=== PATIENT | female | born 1965 | race Caucasian/White ===

== ENCOUNTER 2020-03-12 11:16 | Outpatient (CLI) | payer BC, SELFPAY ==
--- NOTE | ~2020-03-12 | MR_ITS ---
EXAMINATION: MR brain/brain stem wo con DATE: 03/12/2020 15:00 INDICATION: Headache. Dizziness. Right-sided visual disturbance. TECHNIQUE: Magnetic resonance imaging (MRI) of the brain and brainstem was performed without intraven ous contrast. Sequences included sagittal and axial T1-weighted FSE, axial diffusion-weighted FS EPI, axial T2*-weighted GRE, axial T2-weighted FLAIR Propeller, and axial T2-weighted Propeller. Apparent diffusion coefficient (ADC) maps were created. COMPARISON: Head CT 02/25/2006 FINDINGS: There is no intracranial hemorrhage, acute infarction, or abnormal intracranial mass lesion . The ventricles are normal in size. The orbits are normal. The paranasal sinuses are clear. The mast oid air cells are normal. IMPRESSION: 1. Normal brain. Reviewed, dictated and finalized at location A. IMPRESSION: 1. Normal brain.
--- NOTE | ~2020-03-12 | US_ITS ---
EXAMINATION: US art doppler w press LE BI DATE: 03/12/2020 13:09 INDICATION: Multiple discoloration of the left lower limb following hip replacement. Peripheral vascu lar disease risk factors of hypercholesterolemia and smoking. TECHNIQUE: Segmental pressures and plethysmographic and Doppler waveforms of the brachial and lower e xtremity arteries were obtained. COMPARISON: None. FINDINGS: Right and left brachial artery pressures of 133 mm Hg and 139 mm Hg, respectively, are concordant (no rmal difference <= 30 mmHg). The right and left high-thigh pressure indices are 1.12 and 1.14, respec tively (normal > 1.2). The right ankle-brachial index (MATTEO) is 1.14 (normal >= 0.9-1). The right great toe-brachial index (T BI) is 0.93 (normal >= 0.6-0.8). The right lower extremity segmental pressure gradients are normal (n ormal gradients <= 20-30 mmHg between adjacent levels on the same leg or the same levels on the two l egs). Arterial waveforms are triphasic at the right common femoral, superficial femoral and popliteal arteries and biphasic in the right posterior tibial and dorsalis pedis arteries with brisk systolic upstrokes throughout. The left MATTEO is 1.11. The left TBI is 1.09. The left lower extremity segmental pressure gradients are normal. Arterial waveforms are biphasic at the left posterior tibial artery and triphasic at the rem aining arteries with brisk systolic upstrokes throughout. IMPRESSION: 1. Normal MATTEO's and TBI's bilaterally. No significant arterial occlusive disease. Reviewed, dictated and finalized at location A. IMPRESSION: 1. Normal MATTEO's and TBI's bilaterally. No significant arterial occlusive diseas e.
--- NOTE | ~2020-03-12 | XR_ITS ---
XR_CERV2-3V_CR DATE: 03/12/2020 12:22 INDICATION: Neck pain TECHNIQUE: AP, lateral and open mouth views COMPARISON: None FINDINGS: C1 and C2 are normally aligned and the odontoid process is intact. No fracture or dislocat ion or locked facet. No prevertebral soft tissue swelling. The cervical interspaces are preserved. IMPRESSION: No significant abnormality Reviewed, dictated and finalized at Location A. Reviewed, dictated and finalized at location A. IMPRESSION: No significant abnormality
--- NOTE | ~2020-03-12 | US_ITS ---
US venous doppler [facility] DATE: 03/12/2020 13:09 INDICATION: Left leg pain, mottling TECHNIQUE: Real-time and color flow imaging and Doppler analysis COMPARISON: None FINDINGS: The greater saphenous veins are patent. There is spontaneous and phasic flow and normal aug mentation and color flow signal and normal compression of the deep veins of both lower extremities. IMPRESSION: No evidence of deep venous thrombosis of the legs Reviewed, dictated and finalized at Location A. Reviewed, dictated and finalized at location A.
[2020-03-12 11:52] LABS: Hematocrit 42.5 % (37.0-47.0); Hemoglobin 14.4 g/dL (12.0-15.0); Mean Corpuscular HGB Conc 33.9 g/dl (32-36); Mean Corpuscular Volume 91.6 fl (80-100); Mean Platelet Volume 9.5 fl (7.4-10.4); Platelet Count Result 303 k/mm3 (150-375); Red Blood Count 4.64 M/mm3 (4.2-5.4); Red Cell Distribution Width 12.6 % (11.5-14.5); White Blood Count 12.5 K/mm3 (4.5-10.0)
[2020-03-12 12:08] LABS: Alanine Aminotransferase 18 U/L (4-35); Albumin Level 4.5 g/dL (3.5-5.1); Alkaline Phosphatase 102 U/L (38-126); Aspartate Amino Transferase 24 U/L (14-36); Bilirubin,Total 0.3 mg/dL (0.2-1.3); Blood Urea Nitrogen 8 mg/dL (7-17); Calcium 9.3 mg/dL (8.4-10.2); Carbon Dioxide 29 mmol/L (22-30); Chloride 104 mmol/L (98-107); Cholesterol 303 mg/dL (0-200); Estimated Glomerular Filt Rate > 60; Glucose 91 mg/dL (65-105); HDL Direct 40 mg/dL; Potassium 3.9 mmol/L (3.4-5.0); Sodium 140 mmol/L (137-145); Triglycerides 386 mg/dL (<150)
[2020-03-12 12:19] LABS: LDL Cholesterol Direct 181 mg/dL
== END 2020-03-12 11:17 | disposition home or self-care (01) ==
PROVIDERS: PCP Family Medicine; Visit Provider Nurse Practitioner Family
DX: E78.2 Mixed hyperlipidemia (principal); I10 Essential (primary) hypertension; F41.9 Anxiety disorder, unspecified; M54.2 Cervicalgia; H53.9 Unspecified visual disturbance; R42 Dizziness and giddiness; R51 Headache; L81.9 Disorder of pigmentation, unspecified; M79.669 Pain in unspecified lower leg
CPT/HCPCS: 36415; 70551; 72040; 80053; 80061; 84443; 85027; 93923; 93970

== ENCOUNTER 2020-06-05 12:56 | Outpatient (CLI) | payer BC, SELFPAY ==
[2020-06-05 13:15] LABS: Basophils Absolute Auto 0.1 K/mm3 (0.0-0.1); Basophils Percent Auto 0.5 % (0.2-1.2); Eosinophils Absolute Auto 0.7 K/mm3 (0-0.3); Eosinophils Percent Auto 4.2 % (0-4.4); Hematocrit 42.5 % (37.0-47.0); Hemoglobin 14.9 g/dL (12.0-15.0); Immature Granulocyte Absolute 0.05 K/mm3 (0.00-0.031); Immature Granulocyte Percent A 0.3 % (0-0.5); Lymphocytes Absolute Auto 5.25 K/mm3 (0.9-3.2); Lymphocytes Percent Auto 31.7 % (18.3-44.2); Mean Corpuscular HGB Conc 35.1 g/dl (32-36); Mean Corpuscular Hemoglobin 32.3 pg (26-34); Mean Platelet Volume 9.8 fl (7.4-10.4); Monocytes Absolute Auto 1.2 K/mm3 (0.1-0.6); Monocytes Percent Auto 6.9 % (2.6-8.5); Neutrophils Absolute Auto 9.4 K/mm3 (1.3-6.7); Neutrophils Percent Auto 56.4 % (45.5-73.1); Platelet Count Result 266 k/mm3 (150-375); Red Blood Count 4.62 M/mm3 (4.2-5.4); White Blood Count 16.6 K/mm3 (4.5-10.0)
[2020-06-05 13:46] LABS: Atypical Lymphocytes Present; Platelet Estimate Adequate (Adequate)
== END 2020-06-05 12:57 | disposition home or self-care (01) ==
LOC: ANHLAB 12:59
PROVIDERS: PCP Family Medicine; Visit Provider Nurse Practitioner Family
DX: D72.829 Elevated white blood cell count, unspecified (principal)
CPT/HCPCS: 36415; 85025

== ENCOUNTER 2020-11-19 10:07 | Outpatient (CLI) | payer BC, SELFPAY ==
[2020-11-19 10:41] LABS: Basophils Absolute Auto 0.1 K/mm3 (0.0-0.1); Basophils Percent Auto 0.7 % (0.2-1.2); Eosinophils Absolute Auto 0.5 K/mm3 (0-0.3); Eosinophils Percent Auto 4.8 % (0-4.4); Hematocrit 41.5 % (37.0-47.0); Hemoglobin 14.4 g/dL (12.0-15.0); Immature Granulocyte Absolute 0.04 K/mm3 (0.00-0.031); Immature Granulocyte Percent A 0.4 % (0-0.5); Lymphocytes Absolute Auto 3.31 K/mm3 (0.9-3.2); Lymphocytes Percent Auto 33.7 % (18.3-44.2); Mean Corpuscular HGB Conc 34.7 g/dl (32-36); Mean Corpuscular Hemoglobin 31.8 pg (26-34); Mean Corpuscular Volume 91.6 fl (80-100); Mean Platelet Volume 9.8 fl (7.4-10.4); Monocytes Absolute Auto 0.7 K/mm3 (0.1-0.6); Neutrophils Absolute Auto 5.2 K/mm3 (1.3-6.7); Neutrophils Percent Auto 53.4 % (45.5-73.1); Platelet Count Result 249 k/mm3 (150-375); Red Blood Count 4.53 M/mm3 (4.2-5.4); Red Cell Distribution Width 12.7 % (11.5-14.5); White Blood Count 9.8 K/mm3 (4.5-10.0)
[2020-11-19 10:53] LABS: Cholesterol 318 mg/dL (0-200); HDL Direct 55 mg/dL; Triglycerides 369 mg/dL (<150)
[2020-11-19 10:54] LABS: Anion Gap 4 mmol/L (8-16); Blood Urea Nitrogen 12 mg/dL (7-17); Calcium 8.8 mg/dL (8.4-10.2); Carbon Dioxide 29 mmol/L (22-30); Chloride 108 mmol/L (98-107); Estimated Glomerular Filt Rate > 60; Glucose 123 mg/dL (65-105); Magnesium 1.8 mg/dL (1.6-2.3); Sodium 141 mmol/L (137-145)
[2020-11-19 11:03] LABS: LDL Cholesterol Direct 179 mg/dL
== END 2020-11-19 10:08 | disposition home or self-care (01) ==
PROVIDERS: PCP Family Medicine; Visit Provider Family Medicine
DX: D72.820 Lymphocytosis (symptomatic) (principal); E78.5 Hyperlipidemia, unspecified; I10 Essential (primary) hypertension
CPT/HCPCS: 36415; 80048; 80061; 83735; 85025

== ENCOUNTER 2020-12-23 09:40 | Outpatient (CLI) | payer BC, SELFPAY ==
[2020-12-23 09:50] LABS: Basophils Absolute Auto 0.1 K/mm3 (0.0-0.1); Basophils Percent Auto 0.7 % (0.2-1.2); Eosinophils Absolute Auto 0.6 K/mm3 (0-0.3); Eosinophils Percent Auto 5.6 % (0-4.4); Hematocrit 42.7 % (37.0-47.0); Hemoglobin 14.5 g/dL (12.0-15.0); Immature Granulocyte Absolute 0.03 K/mm3 (0.00-0.031); Immature Granulocyte Percent A 0.3 % (0-0.5); Lymphocytes Absolute Auto 3.66 K/mm3 (0.9-3.2); Lymphocytes Percent Auto 35.1 % (18.3-44.2); Mean Corpuscular Volume 94.3 fl (80-100); Mean Platelet Volume 9.5 fl (7.4-10.4); Monocytes Absolute Auto 0.9 K/mm3 (0.1-0.6); Monocytes Percent Auto 8.3 % (2.6-8.5); Neutrophils Absolute Auto 5.2 K/mm3 (1.3-6.7); Platelet Count Result 241 k/mm3 (150-375); Red Blood Count 4.53 M/mm3 (4.2-5.4); Red Cell Distribution Width 12.8 % (11.5-14.5); White Blood Count 10.4 K/mm3 (4.5-10.0)
[2020-12-23 10:00] LABS: Anion Gap 4 mmol/L (8-16); Blood Urea Nitrogen 14 mg/dL (7-17); Carbon Dioxide 31 mmol/L (22-30); Chloride 108 mmol/L (98-107); Cholesterol 322 mg/dL (0-200); Estimated Glomerular Filt Rate > 60; Glucose 104 mg/dL (65-105); HDL Direct 45 mg/dL; Potassium 4.1 mmol/L (3.4-5.0); Sodium 143 mmol/L (137-145); Triglycerides 241 mg/dL (<150)
[2020-12-23 10:11] LABS: LDL Cholesterol Direct 196 mg/dL
== END 2020-12-23 09:41 | disposition home or self-care (01) ==
PROVIDERS: PCP Family Medicine; Visit Provider Family Medicine
DX: E78.2 Mixed hyperlipidemia (principal); Z13.220 Encounter for screening for lipoid disorders; D72.820 Lymphocytosis (symptomatic)
CPT/HCPCS: 36415; 80048; 80061; 85025

== ENCOUNTER 2021-02-10 10:29 | Outpatient (CLI) | payer BC, SELFPAY ==
--- NOTE | ~2021-02-10 | XR_ITS ---
XR femur LT min 2V DATE: 02/10/2021 10:49 INDICATION: Left leg pain TECHNIQUE: AP and lateral views COMPARISON: None FINDINGS: Lumbar pedicles screws of study plates are noted. Degenerative disc disease at L5-S1. Status post left total hip arthroplasty. There is radiolucency along the stem of the femoral prosthesis with surrounding sclerotic radiopaque line, suggesting loosening. No fracture or dislocation, periosteal reaction or bone destruction of the femur is evident. Diffuse osteopenia. IMPRESSION: Status post left total hip arthroplasty Radiolucency and thin radiopaque sclerotic line surrounding the stem of the femoral prosthesis, sugge sting loosening Lumbar pedicles screws and Steffee plates Degenerative disc disease at L5-S1. Osteopenia Reviewed, dictated and finalized at location A. IMPRESSION: Status post left total hip arthroplasty Radiolucency and thin radiopaque sclerotic line surrounding the stem of the fem oral prosthesis, suggesting loosening Lumbar pedicles screws and Steffee plates Degenerative disc disease at L5-S1. Osteopenia
[2021-02-10 11:23] LABS: Anion Gap 4 mmol/L (8-16); Blood Urea Nitrogen 13 mg/dL (7-17); CRP 0.5 mg/dL (<1.0); Calcium 9.6 mg/dL (8.4-10.2); Carbon Dioxide 32 mmol/L (22-30); Chloride 107 mmol/L (98-107); Estimated Glomerular Filt Rate > 60; Glucose 104 mg/dL (65-105); Potassium 4.6 mmol/L (3.4-5.0); Sodium 143 mmol/L (137-145)
[2021-02-10 12:29] LABS: Basophils Absolute Auto 0.1 K/mm3 (0.0-0.1); Basophils Percent Auto 0.9 % (0.2-1.2); Eosinophils Absolute Auto 0.5 K/mm3 (0-0.3); Eosinophils Percent Auto 5.1 % (0-4.4); Hematocrit 41.4 % (37.0-47.0); Hemoglobin 13.9 g/dL (12.0-15.0); Immature Granulocyte Absolute 0.03 K/mm3 (0.00-0.031); Immature Granulocyte Percent A 0.3 % (0-0.5); Lymphocytes Absolute Auto 3.48 K/mm3 (0.9-3.2); Mean Corpuscular HGB Conc 33.6 g/dl (32-36); Mean Corpuscular Hemoglobin 31.7 pg (26-34); Mean Corpuscular Volume 94.3 fl (80-100); Mean Platelet Volume 10.2 fl (7.4-10.4); Monocytes Absolute Auto 0.8 K/mm3 (0.1-0.6); Monocytes Percent Auto 7.5 % (2.6-8.5); Neutrophils Absolute Auto 5.6 K/mm3 (1.3-6.7); Neutrophils Percent Auto 53.2 % (45.5-73.1); Platelet Count Result 260 k/mm3 (150-375); Red Blood Count 4.39 M/mm3 (4.2-5.4); Red Cell Distribution Width 12.6 % (11.5-14.5); White Blood Count 10.5 K/mm3 (4.5-10.0)
[2021-02-10 14:47] LABS: Erythrocyte Sedimentation Rate 14 mm/hr (0-20)
== END 2021-02-10 10:30 | disposition home or self-care (01) ==
PROVIDERS: PCP Family Medicine; Visit Provider Family Medicine
DX: M51.37 Other intervertebral disc degeneration, lumbosacral region (principal); M85.88 Other specified disorders of bone density and structure, other site
CPT/HCPCS: 36415; 73552; 80048; 85025; 85652; 86140

== ENCOUNTER → 2021-02-24 01:18 | Outpatient (CLI) | payer BC, SELFPAY ==
[2021-02-24 17:12] LABS: SARS-CoV-2 RNA PCR Negative
== END ==
PROVIDERS: Physician Assistant Medical; PCP Family Medicine; Visit Provider Internal Medicine Gastroenterology
DX: R68.89 Other general symptoms and signs (principal); Z20.822 Contact with and (suspected) exposure to COVID-19
CPT/HCPCS: C9803; U0003; U0005

== ENCOUNTER 2021-02-27 01:24 | Day surgery (SDC) | payer BC, SELFPAY ==
[2021-02-11 11:14] VITALS: BMI 21.1
[2021-02-27 07:46] VITALS: BP 128/70; PULSE 77; RESP 20; TEMP 36.2; O2SAT 98
[2021-02-27] MEDS: LACTATED RINGERS 1,000 ML 150 ML IV CONT (07:50)
--- NOTE | 2021-02-27 08:29 | PM.HPGS ---
History of Present Illness History of Present Illness Consent: Risks, benefits, and alternatives have been discussed and questions answered. Patient agrees to proceed with procedure. Chief complaint: choi's esophagus Narrative: Yara Kapoor is a 55 year old female With a long history of acid reflux. In the past she had been found to have Choi's esophagus. Biopsies that were done in 2014 were negative for Choi's. She now has what she calls a chokie sensation. This is in her throat just above the sternum. It may last all day. Swallowing Or sucking on something like candy will help it. rarely she will regurgitate stomach liquid into her throat. She has therefore been taking her pantoprazole twice a day, though this has not made a huge difference. She denies dysphagia she has not lost weight in fact has gained. 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 Changing skin lesion Chronic insomnia Coronary artery disease involving [place] coronary artery of [place] heart Elevated triglycerides with high cholesterol Elevated white blood cell count Essential (primary) hypertension Leg pain, left Mixed hyperlipidemia Mixed hyperlipidemia Osteoporosis Other emphysema Prosthetic joint loosening Tobacco abuse Torticollis Viral wart on finger Family History Family History Father Hypertension Family history of coronary artery disease Family history of malignant neoplasm of esophagus Family history of malignant neoplasm Family history of kidney disease Mother Hypertension Family history of coronary artery disease Family history of Alzheimer's disease Social History Social History Years smoked: 40 Smoking status: Former smoker Tobacco type: cigarettes Alcohol intake: former Alcohol use details: Former Alcoholic Substance use: current Substance use type: marijuana Other substance usage details: As needed Gender identity (if verbalized by the patient): Female Spiritual care concerns: No Meds Home Medications and Allergies Home Medications Medication Instructions Recorded Confirmed Type clopidogrel 75 mg tablet 75 mg PO DAILY #90 tablet 01/14/20 02/27/21 Rx pantoprazole 40 mg tablet,delayed 40 mg PO BID #180 tablet 06/23/20 02/27/21 Rx release cetirizine 10 mg tablet See Rx Instructions .ROUTE 08/10/20 02/27/21 Rx .COMPLEX #90 tablet gabapentin 300 mg capsule See Rx Instructions .ROUTE 11/17/20 02/27/21 Rx .COMPLEX #360 cap acetaminophen 500 mg tablet 500 mg PO Q6H 12/09/20 02/27/21 History diazepam 10 mg tablet 10 mg PO TID PRN #90 tablet 02/03/21 02/27/21 Rx naproxen 500 mg tablet 500 mg PO BID #60 tablet 02/08/21 02/27/21 Rx carvedilol 3.125 mg PO BID 02/11/21 02/27/21 History evolocumab [Repatha SureKevonick] See Rx Instructions .ROUTE .COMPLEX 02/11/21 02/27/21 History varenicline 1 mg tablet 1 mg PO BID #56 tablet 02/20/21 02/27/21 Rx Allergies Allergy/AdvReac Type Severity Reaction Status Date / Time hydrocodone AdvReac Intermediate Nausea Verified 02/27/21 07:41 oxycodone AdvReac Intermediate Nausea Verified 02/27/21 07:41 Vital Signs Vital Signs - 24 hr 02/27/21 07:46 Temperature 36.2 C L Pulse Rate 77 Respiratory Rate 20 Blood Pressure 128/70 Pulse Oximetry 98 Exam Resp: Auscultation: clear to auscultation bilaterally Cardio: Rate: regular rate Rhythm: regular rhythm GI: GI Palp: Yes Soft to palpation and No Tenderness to palpation present (GI) Assessment and Plan Assessment and plan (1) GERD (gastroesophageal reflux disease): Code(s): K21.9 - Gastro-es
--- NOTE | 2021-02-27 08:32 | WPDANESEPPF ---
Anes - Initial Pre Proc Eval Procedure: Operation Date: 02/27/21 09:15 Proposed Procedures p Esophagogastroduodenoscopy - Mehran Schaeffer MD Date/Time: 02/27/21 08:32 Surgeon: Mehran Schaeffer MD Pre Op Diagnosis: choi's esophagus Patient Data Age: 55 Gender: F Height: 1.75 m Weight: 71.8 kg Last Vital Signs Temp 97.2 F L 02/27/21 07:46 Pulse 77 02/27/21 07:46 Resp 20 02/27/21 07:46 BP 128/70 02/27/21 07:46 Pulse Ox 98 02/27/21 07:46 Allergies Allergy/AdvReac Type Severity Reaction Status Date / Time hydrocodone AdvReac Intermediate Nausea Verified 02/27/21 07:41 oxycodone AdvReac Intermediate Nausea Verified 02/27/21 07:41 Home Medications Medication Instructions Recorded Confirmed Type clopidogrel 75 mg tablet 75 mg PO DAILY #90 tablet 01/14/20 02/27/21 Rx pantoprazole 40 mg tablet,delayed 40 mg PO BID #180 tablet 06/23/20 02/27/21 Rx release cetirizine 10 mg tablet See Rx Instructions .ROUTE 08/10/20 02/27/21 Rx .COMPLEX #90 tablet gabapentin 300 mg capsule See Rx Instructions .ROUTE 11/17/20 02/27/21 Rx .COMPLEX #360 cap acetaminophen 500 mg tablet 500 mg PO Q6H 12/09/20 02/27/21 History diazepam 10 mg tablet 10 mg PO TID PRN #90 tablet 02/03/21 02/27/21 Rx naproxen 500 mg tablet 500 mg PO BID #60 tablet 02/08/21 02/27/21 Rx carvedilol 3.125 mg PO BID 02/11/21 02/27/21 History evolocumab [Repatha SureClick] See Rx Instructions .ROUTE .COMPLEX 02/11/21 02/27/21 History varenicline 1 mg tablet 1 mg PO BID #56 tablet 02/20/21 02/27/21 Rx Patient hx anesthesia problems: none Family hx anesthesia problems: none PMFSH Past Medical History Medical History Anxiety disorder, unspecified 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 myelopathy Changing skin lesion Chronic insomnia Coronary artery disease involving [place] coronary artery of [place] heart Elevated triglycerides with high cholesterol Elevated white blood cell count Essential (primary) hypertension Leg pain, left Mixed hyperlipidemia Mixed hyperlipidemia Osteoporosis Other emphysema Prosthetic joint loosening Tobacco abuse Torticollis Viral wart on finger Family History Family History Father Hypertension Family history of coronary artery disease Family history of malignant neoplasm of esophagus Family history of malignant neoplasm Family history of kidney disease Mother Hypertension Family history of coronary artery disease Family history of Alzheimer's disease Social History Social History Years smoked: 40 Smoking status: Former smoker Tobacco type: cigarettes Alcohol intake: former Alcohol use details: Former Alcoholic Substance use: current Substance use type: marijuana Other substance usage details: As needed Gender identity (if verbalized by the patient): Female Spiritual care concerns: No Anes - Eval Final PreProcedure Day of Procedure 02/27/21 08:32 Patient weight: normal Heart: regular rate and rhythm Lungs: clear to auscultation Airway: Mallampati scale class II Neurological: alert and oriented Last oral intake: >/= 8 hours ASA classification: III Emergent: no Anesthetic plan: proceed Anesthesia type and monitoring: general GIVS and standard monitoring Informed Consent: The patient's anesthetic plan and its attendant risks and benefits were discussed with the patient/family/POA. Questions were solicited and answers provided to the satisfaction of the patient/family/POA.
[2021-02-27 09:12] VITALS: BP 126/61; PULSE 72; RESP 23; O2SAT 98
[2021-02-27 09:22] VITALS: BP 118/56; PULSE 70; RESP 20; O2SAT 98
[2021-02-27 09:28] VITALS: BP 128/73; PULSE 70; RESP 20; O2SAT 98
== END 2021-02-27 09:45 | disposition home or self-care (01) ==
PROVIDERS: PCP Family Medicine; Visit Provider Internal Medicine Gastroenterology
PROC: 0DJ08ZZ Inspection of Upper Intestinal Tract, Via Natural or Artificial Opening Endoscopic (ICD-10-PCS; CPT 43235; principal; 2021-02-27 09:15)
DX: K21.9 Gastro-esophageal reflux disease without esophagitis (principal); K22.70 Barrett's esophagus without dysplasia; F41.9 Anxiety disorder, unspecified; M81.0 Age-related osteoporosis without current pathological fracture; E78.2 Mixed hyperlipidemia; I10 Essential (primary) hypertension; D72.829 Elevated white blood cell count, unspecified; M47.12 Other spondylosis with myelopathy, cervical region; G47.00 Insomnia, unspecified; F12.90 Cannabis use, unspecified, uncomplicated; Z87.891 Personal history of nicotine dependence; J43.9 Emphysema, unspecified
CPT/HCPCS: 43239; 88305; J2704; J7120

== ENCOUNTER 2021-03-18 14:34 | Outpatient (CLI) | payer BC, SELFPAY ==
[2021-03-18 15:03] LABS: Basophils Absolute Auto 0.1 K/mm3 (0.0-0.1); Basophils Percent Auto 0.7 % (0.2-1.2); Eosinophils Absolute Auto 0.4 K/mm3 (0-0.3); Eosinophils Percent Auto 3.6 % (0-4.4); Hematocrit 38.9 % (37.0-47.0); Hemoglobin 13.3 g/dL (12.0-15.0); Immature Granulocyte Absolute 0.05 K/mm3 (0.00-0.031); Immature Granulocyte Percent A 0.4 % (0-0.5); Lymphocytes Absolute Auto 3.57 K/mm3 (0.9-3.2); Lymphocytes Percent Auto 30.2 % (18.3-44.2); Mean Corpuscular HGB Conc 34.2 g/dl (32-36); Mean Corpuscular Hemoglobin 30.9 pg (26-34); Mean Corpuscular Volume 90.5 fl (80-100); Mean Platelet Volume 9.3 fl (7.4-10.4); Monocytes Absolute Auto 0.9 K/mm3 (0.1-0.6); Monocytes Percent Auto 7.2 % (2.6-8.5); Neutrophils Absolute Auto 6.8 K/mm3 (1.3-6.7); Neutrophils Percent Auto 57.9 % (45.5-73.1); Platelet Count Result 304 k/mm3 (150-375); Red Cell Distribution Width 12.3 % (11.5-14.5); White Blood Count 11.8 K/mm3 (4.5-10.0)
[2021-03-18 15:15] LABS: CRP < 0.5 mg/dL (<1.0)
[2021-03-18 16:20] LABS: Erythrocyte Sedimentation Rate 22 mm/hr (0-20)
== END 2021-03-18 14:35 | disposition home or self-care (01) ==
PROVIDERS: PCP Family Medicine; Visit Provider Internal Medicine Hematology & Oncology
DX: D72.829 Elevated white blood cell count, unspecified (principal)
CPT/HCPCS: 36415; 85025; 85652; 86140; 88184

== ENCOUNTER → 2021-04-20 09:24 | Outpatient (CLI) | payer BC, SELFPAY ==
[2021-04-21 01:23] LABS: SARS-CoV-2 RNA PCR Positive
== END ==
PROVIDERS: PCP Family Medicine; Visit Provider Nurse Practitioner Family
DX: R05 Cough (principal); Z20.822 Contact with and (suspected) exposure to COVID-19
CPT/HCPCS: C9803; U0003; U0005

== ENCOUNTER → 2021-12-01 10:54 | Outpatient (CLI) | payer BC, SELFPAY ==
--- NOTE | ~2021-12-01 | US_ITS ---
EXAMINATION: US soft tissue UE RT DATE: 12/01/2021 11:14 INDICATION: Localized swelling, mass or lump along the cephalad aspect of the right shoulder TECHNIQUE: Multiple grayscale and Doppler ultrasound images of the region of concern at the right jose armando ulder were obtained. COMPARISON: None FINDINGS: 3.5 x 2.9 x 0.5 cm lenticular mass situated in the subcutaneous fat overlying the region of the acrom ioclavicular joint which demonstrate similar echogenicity and echotexture to the surrounding fat whic h would be most consistent with a lipoma. No other abnormal masses or fluid collections identified. IMPRESSION: 1. Nonspecific 3.5 x 2.9 x 0.5 cm subcutaneous mass overlying the right acromioclavicular joint with appearance most consistent with and statistically most likely to represent a lipoma. Reviewed, dictated and finalized at location B. IMPRESSION: 1. Nonspecific 3.5 x 2.9 x 0.5 cm subcutaneous mass overlying the right acromio clavicular joint with appearance most consistent with and statistically most li lyndon to represent a lipoma.
== END ==
PROVIDERS: PCP Family Medicine; Visit Provider Family Medicine
DX: R22.1 Localized swelling, mass and lump, neck (principal)
CPT/HCPCS: 76882

== ENCOUNTER 2022-01-08 10:52 | Outpatient (CLI) | payer BC, SELFPAY ==
--- NOTE | ~2022-01-08 | CT_ITS ---
EXAMINATION: CT soft tissue neck w con DATE: 01/08/2022 11:39 INDICATION: Right neck mass. TECHNIQUE: Computed tomography (CT) of the neck was performed with 75 mL Omnipaque-350 intravenous co ntrast. Automated exposure control and iterative reconstruction technique were employed. The dose-dudley gth product was 144.29 mGy-cm. COMPARISON: Ultrasound 12/01/2021 FINDINGS: There are no pathologically enlarged lymph nodes. There is plaque in the proximal internal carotid arteries with 0% stenosis relative to normal distal artery lumen diameters. The paranasal sin uses are clear. The mastoid air cells are normal. There is mild cervical spondylosis. There is a no experience clarissa compression fracture of T2. IMPRESSION: 1. No abnormal mass superficial to the right acromioclavicular joint in the area of the ultrasound fi nding, likely normal subcutaneous fat. Reviewed, dictated and finalized at location A. IMPRESSION: 1. No abnormal mass superficial to the right acromioclavicular joint in the are a of the ultrasound finding, likely normal subcutaneous fat.
[2022-01-08 11:18] LABS: Estimated Glomerular Filt Rate > 60
== END 2022-01-08 10:53 ==
LOC: MICIMG 10:53
PROVIDERS: PCP Family Medicine; Visit Provider Physician Assistant Medical
DX: R22.1 Localized swelling, mass and lump, neck (principal)
CPT/HCPCS: 70491; Q9967

== ENCOUNTER → 2022-03-30 10:30 | Outpatient (CLI) | payer BC, SELFPAY ==
--- NOTE | ~2022-03-30 | XR_ITS ---
EXAM: XR cervical spine min 6V DATE: 03/30/2022 11:15 HISTORY: M50.00 - Cervical disc disorder with myelopathy, unspecif... . COMPARISON: None available. FINDINGS: Decreased mineralization. Craniocervical association and atlantoaxial joint are aligned, w ith mild degenerative change. No prevertebral soft tissue swelling. Vertebral bodies are aligned. No change in alignment with flexion or extension. Vertebral body heights are maintained. Mild disc space narrowing at C6-7. Possible unilateral or bilateral facet fusion at C4-5. Mild facet sclerosis and h ypertrophy. IMPRESSION: No dynamic listhesis. Mild degenerative disc disease at C6-7. Multilevel facet arthropath y. Reviewed, dictated and finalized at location K. IMPRESSION: No dynamic listhesis. Mild degenerative disc disease at C6-7. Multi level facet arthropathy.
== END ==
PROVIDERS: PCP Family Medicine; Visit Provider Family Medicine
DX: M50.323 Other cervical disc degeneration at C6-C7 level (principal)
CPT/HCPCS: 72052

== ENCOUNTER 2022-10-13 12:48 | Outpatient (CLI) | payer BC, SELFPAY | END 2022-10-13 12:49 | disposition home or self-care (01) | LOC: ANHAUDIO 12:50 | PROVIDERS: PCP Family Medicine; Visit Provider Family Medicine | DX: H93.13 Tinnitus, bilateral (principal) | CPT/HCPCS: 99199 ==

== ENCOUNTER 2022-10-26 08:00 | Outpatient (NON) | payer BC, SELFPAY | END 2022-10-26 08:01 | disposition home or self-care (01) | LOC: ANHLAB 10-27 10:53 | PROVIDERS: PCP Family Medicine; Visit Provider Nurse Practitioner | DX: R22.9 Localized swelling, mass and lump, unspecified (principal) | CPT/HCPCS: 88304 ==

== ENCOUNTER → 2022-12-20 11:39 | Outpatient (CLI) | payer BC, SELFPAY ==
--- NOTE | ~2022-12-20 | XR_ITS ---
EXAMINATION: XR hand RT 2V INDICATION: Right hand pain TECHNIQUE: Two views of the right hand are obtained. COMPARISON: None available FINDINGS: Bone alignment is normal. There is no fracture. There is mild osteoarthritis of multiple in terphalangeal joints. IMPRESSION: 1. Osteoarthritis without acute osseous abnormality. Reviewed, dictated and finalized at location B.
--- NOTE | ~2022-12-20 | XR_ITS ---
EXAMINATION: XR wrist RT 2V INDICATION: Right wrist pain TECHNIQUE: Two views of the right wrist are obtained. COMPARISON: None available FINDINGS: Bone alignment is normal. There is no fracture. There is mild soft tissue swelling of the w rist. IMPRESSION: 1. No acute osseous abnormality. Reviewed, dictated and finalized at location B.
== END ==
PROVIDERS: PCP Family Medicine; Visit Provider Physician Assistant Medical
DX: S69.91XA Unspecified injury of right wrist, hand and finger(s), initial encounter (principal); X58.XXXA Exposure to other specified factors, initial encounter; M19.041 Primary osteoarthritis, right hand
CPT/HCPCS: 73100; 73120